=== PATIENT | female | born 1995 | race Caucasian/White ===

== ENCOUNTER 2019-09-28 11:37 | Emergency (ER) | payer OTHER ==
[~2019-09-28] VITALS: Ht 157.5 cm; Wt 45.4 kg
[2019-09-28] MEDS ORDERED: AZITHROMYCIN250 MG PO (11:58)
[2019-09-28] MEDS ORDERED: KETO10TA2 PO (16:51)
== END 2019-09-28 17:25 ==
LOC: ER 11:37
DX: J02.8 Acute pharyngitis due to other specified organisms (principal)